=== PATIENT | female | born 1965 | race African-American/Black ===

== ENCOUNTER 2022-03-30 09:54 | Emergency (ER) | payer MEDICAID ==
[~2022-03-30] VITALS: Ht 165.1 cm; Wt 110.0 kg
[2022-03-30] MEDS ORDERED: IBUPROFEN 400MG TABLET PO ONE (11:15)
[2022-03-30] MEDS ORDERED: HYDR-4001 MT (12:56)
[2022-03-30] MEDS ORDERED: IBUP-2028 MT (12:56)
[2022-03-30 14:40] VITALS: BP 138/76
== END 2022-03-30 14:40 | disposition home or self-care (01) ==
LOC: ER 10:49
DX: S92.811A Other fracture of right foot, initial encounter for closed fracture (principal); X58.XXXA Exposure to other specified factors, initial encounter; Y93.89 Activity, other specified; Y92.89 Other specified places as the place of occurrence of the external cause; Y99.8 Other external cause status; M79.671 Pain in right foot; M25.571 Pain in right ankle and joints of right foot; M25.572 Pain in left ankle and joints of left foot; E11.9 Type 2 diabetes mellitus without complications; Z88.0 Allergy status to penicillin; Z90.49 Acquired absence of other specified parts of digestive tract
CPT/HCPCS: 29515; 73590; 73610; 73630; 99284

== ENCOUNTER 2022-04-10 13:00 | Emergency (ER) | payer BC, MEDICAID ==
[~2022-04-10] VITALS: Ht 167.6 cm; Wt 107.0 kg
[~2022-04-10 13:00] MED LIST: HYDR-4001 MT; IBUP-2028 MT
[2022-04-10] MEDS ORDERED: HYDR-4001 MT (13:51)
[2022-04-10] MEDS ORDERED: HYDROCODONE/ACETAMINOPHEN 5/325MG TABLET PO ONE (14:00)
[2022-04-10 14:12] VITALS: BP 157/86
== END 2022-04-10 14:13 | disposition home or self-care (01) ==
LOC: ER 13:00
DX: M25.571 Pain in right ankle and joints of right foot (principal); E11.9 Type 2 diabetes mellitus without complications; I10 Essential (primary) hypertension; E78.5 Hyperlipidemia, unspecified; Z88.0 Allergy status to penicillin; Z88.3 Allergy status to other anti-infective agents; Z88.6 Allergy status to analgesic agent; Z90.49 Acquired absence of other specified parts of digestive tract; Z98.890 Other specified postprocedural states
CPT/HCPCS: 99283